=== PATIENT | female | born 1975 | race Caucasian/White ===

== ENCOUNTER 2020-01-08 11:57 | Outpatient (CLI) | payer BC, SELFPAY ==
--- NOTE | 2020-01-08 12:05 | MM_ITS ---
WS: [id number] BILATERAL SCREENING MAMMOGRAM WITH YAZMIN DISPLACEMENT VIEWS. CAD PERFORMED. HISTORY: SCREENING COMPARISON: 11/14/2018 and 11/07/2017 Bilateral craniocaudal and mediolateral like views are performed. Yazmin displacement views in CC and MLO projection also performed. Breasts composition: The breasts are heterogeneously dense, which may obscure small masses. Retropectoral implants are intact. No suspicious masses or calcifications. MM/[id number] IMPRESSION: BI-RADS: 2-Benign FOLLOW-UP: 1 Year Follow-up
== END 2020-01-08 11:58 | disposition home or self-care (01) ==
PROVIDERS: PCP Family Medicine; Visit Provider Family Medicine
DX: Z12.31 Encounter for screening mammogram for malignant neoplasm of breast (principal)
CPT/HCPCS: 77067

== ENCOUNTER 2021-02-05 08:15 | Outpatient (CLI) | payer OTHER, SELFPAY ==
--- NOTE | 2021-02-05 08:23 | MM_ITS ---
WS: [id number] Bilateral screening digital mammogram, 02/05/2021 Clinical Data: SCREENING Comparison: 01/08/2020, 11/14/2018, 11/07/2017, 11/05/2016, 11/05/2015, 10/28/2014. Findings: The breast parenchymal pattern shows heterogeneous density No spiculated masses or clustered calcific ations are seen. There are no secondary signs of carcinoma. The patient has had bilateral augmentatio n mammoplasty implants. The implants are intact. MM/[id number] Impression: 1. Negative bilateral mammogram unchanged. 2. Recommend annual screening mammograms. BIRADS: 2-Benign FOLLOW UP: 1 Year Follow-up The CAD fruit checker was used.
== END 2021-02-05 08:16 | disposition home or self-care (01) ==
LOC: RADSHAW 08:20
PROVIDERS: PCP Family Medicine; Visit Provider Family Medicine
DX: Z12.31 Encounter for screening mammogram for malignant neoplasm of breast (principal)
CPT/HCPCS: 77067

== ENCOUNTER 2022-02-09 09:41 | Outpatient (CLI) | payer OTHER, SELFPAY ==
--- NOTE | 2022-02-09 09:51 | MM_ITS ---
WS: [id number] BILATERAL SCREENING DIGITAL BREAST MAMMOGRAPHY WITH YAZMIN DISPLACEMENT VIEWS. CAD PERFORMED. HISTORY: SCREENING COMPARISON: 02/05/2021 and 01/18/2020 Bilateral craniocaudal and mediolateral oblique views are performed with tomosynthesis and SM. Yazmin displacement views in CC and MLO projection also performed. Breasts composition: There are scattered areas of fibroglandular density. Implants are retropectoral and intact. No suspicious mass or calcification. MM/[id number] IMPRESSION: BI-RADS: 2-Benign FOLLOW-UP: 1 Year Follow-up
== END 2022-02-09 09:42 | disposition home or self-care (01) ==
PROVIDERS: PCP Family Medicine; Visit Provider Family Medicine
DX: Z12.31 Encounter for screening mammogram for malignant neoplasm of breast (principal)
CPT/HCPCS: 77063; 77067

== ENCOUNTER 2023-02-11 07:55 | Outpatient (CLI) | payer OTHER, SELFPAY ==
--- NOTE | 2023-02-11 08:00 | MM_ITS ---
WS: [id number] Bilateral screening 3D tomosynthesis digital mammogram, 02/11/2023 Clinical Data: SCREENING Comparison: 02/09/2022, 02/05/2021, 01/08/2020, 11/14/2018, 11/07/2017, 11/05/2016, 11/05/2015, 10/28/2014. Findings: The breast parenchymal pattern shows heterogeneous density. No spiculated masses or clustered calcifi cations are seen. There are no secondary signs of carcinoma. There are bilateral augmentation mammopl asty implants which are intact and unchanged. MM/[id number] Impression: 1. Negative bilateral mammogram unchanged. 2. Recommend annual screening mammograms. BIRADS: 2-Benign FOLLOW UP: 1 Year Follow-up The CAD electric organ checker was used.
== END 2023-02-11 07:56 | disposition home or self-care (01) ==
PROVIDERS: PCP Family Medicine; Visit Provider Family Medicine
DX: Z12.31 Encounter for screening mammogram for malignant neoplasm of breast (principal)
CPT/HCPCS: 77063; 77067

== ENCOUNTER 2025-02-13 08:11 | Outpatient (CLI) | payer OTHER, SELFPAY ==
--- NOTE | 2025-02-13 08:18 | MM_ITS ---
WS: [id number] BILATERAL SCREENING DIGITAL BREAST MAMMOGRAPHY WITH YAZMIN DISPLACEMENT VIEWS. CAD PERFORMED. HISTORY: SCREENING COMPARISON: 02/13/2024, 02/11/2023, 02/09/2022 Bilateral craniocaudal and mediolateral oblique views are performed with tomosynthesis and SM. Yazmin displacement views in CC and MLO projection also performed. Breasts composition: There are scattered areas of fibroglandular density. No suspicious mass or grouping of calcifications. Implants are intact and retropectoral. No calcification or capsular contraction. MM/MM [facility] tomosynthesis [id number] IMPRESSION: BI-RADS: 2 - Benign. FOLLOW-UP: 1 Year Follow-up
== END 2025-02-13 08:12 | disposition home or self-care (01) ==
LOC: RAD 08:14
PROVIDERS: PCP Family Medicine; Visit Provider Family Medicine
DX: Z12.31 Encounter for screening mammogram for malignant neoplasm of breast (principal); Z98.82 Breast implant status; R92.323 Mammographic fibroglandular density, bilateral breasts
CPT/HCPCS: 77063; 77067